=== PATIENT | female | born 1975 | race Caucasian/White ===

== ENCOUNTER 2020-03-15 12:54 | Emergency (ER) | payer OTHER ==
--- NOTE | 2020-03-15 14:41 | ER Document Report ---
ED General - General Chief Complaint: Cough Stated Complaint: COUGH,VOMITING,HEADACHE,DIARRHEA Primary Care Provider: MYA FABIAN MD [NO LOCAL MD] - Follow up as needed Notes: Patient is a 44-year-old white female who is a current everyday user of a vaping device who presents to the emergency department with a chief complaint of cough. She states yesterday evening she started having some nausea, vomiting and diarrhea. She states it was a couple episodes that were fleeting. This has since resolved. She states she awoke this morning and no longer had any of the symptoms. She states that she had breakfast without any problems. She has not had any formed stool yet today however. She denies any associated abdominal pain, urinary complaints. She states today however she developed a dry cough and has pain with deep inspiration in the chest. She admits associated with a mild headache. She denies any recent travel or sick contacts. Denies any fever. States the cough is nonproductive. She states there is no pain in the chest at rest. No lower extremity pain or swelling. No hemoptysis. No history of hormone replacement therapies, recent surgery, recent travel or recent immobilization. No history of DVT or PE. - Related Data Allergies/Adverse Reactions: Penicillins Allergy (Verified 03/15/20 14:11) Past Medical History - Social History Smoking Status: Former Smoker Frequency of alcohol use: Occasional Drug Abuse: None Family History: Reviewed & Not Pertinent Patient has homicidal ideation: No - Past Medical History Cardiac Medical History: Reports: Hx Hypertension Psychiatric Medical History: Reports: Hx Depression - anxiety Past Surgical History: Reports: Hx Section - x2 Review of Systems - Review of Systems Constitutional: denies: Fever EENT: denies: Nose discharge Cardiovascular: denies: Chest pain Respiratory: Cough, Hurts to breathe, Short of breath. denies: Sputum Gastrointestinal: Diarrhea, Nausea, Vomiting. denies: Abdominal pain Genitourinary: denies: Burning, Dysuria Female Genitourinary: denies: Irregular period Musculoskeletal: denies: Joint pain Skin: denies: Change in color Hematologic/Lymphatic: denies: Easy bleeding Neurological/Psychological: denies: Confusion Physical Exam - Vital signs Vitals: Temp Pulse Resp BP Pulse Ox 98.4 F 73 18 118/74 97 03/15/20 13:39 03/15/20 13:39 03/15/20 13:39 03/15/20 13:39 03/15/20 13:39 - General General appearance: Appears well, Alert In distress: None - HEENT Head: Normocephalic, Atraumatic Eyes: Normal Conjunctiva: Normal Extraocular movements intact: Yes Eyelashes: Normal Pupils: PERRL Ears: Normal External canal: Normal Tympanic membrane: Normal Nasal: Normal Mouth/Lips: Normal Mucous membranes: Normal Pharynx: Normal Neck: Normal, Supple - Respiratory Respiratory status: No respiratory distress Chest status: Nontender Breath sounds: Normal Chest palpation: Normal Notes: Pain elicited with deep inspiration on exam. No rubs auscultated. Chest nontender to palpation. - Cardiovascular Rhythm: Regular Heart sounds: Normal auscultation - Abdominal Inspection: Normal Distension: No distension Bowel sounds: Normal Tenderness: Nontender Organomegaly: No organomegaly - Extremities General upper extremity: Normal inspection, Nontender, Normal color, Normal ROM, Normal temperature General lower extremity: Normal inspection, Nontender, Normal color, Normal ROM, Normal temperature, Normal weight bearing. No: Andra's sign - Neurological Neuro grossly intact: Yes Cognition: Normal Orientation: AAOx4 - Psychological Associated symptoms: Normal affect, Normal mood - Skin Skin Temperature: Warm Skin Moisture: Dry Skin Color: Normal Course - Re-evaluation Re-evalutation: 03/15/20 17:11 Negative strep and flu. Chest x-ray negative for any acute process per radiologist. Suspect viral illness with cough. Will give Tessalon Perles. Patient requested a note for work today. Low risk for COVID-19. Advised to decrease vaping, increase clear fluids and rest. Counseled her to return here or any ER immediately with any new, persistent or worsening symptoms. Follow-up in 2 to 3 days for reevaluation. She verbalized understood and agreed. - Vital Signs Vital signs: Temp Pulse Resp BP Pulse Ox 98.4 F 73 18 118/74 97 03/15/20 14:16 03/15/20 13:39 03/15/20 13:39 03/15/20 13:39 03/15/20 13:39 Discharge - Discharge Clinical Impression: Viral illness, Cough Condition: Stable Disposition: HOME, SELF-CARE Instructions: Viral Syndrome ([facility]) Additional Instructions: Follow-up with your regular doctor in 2 to 3 days for reevaluation. Return here or any ER immediately with any new, persistent or worsening symptoms. Prescriptions: Benzonatate [Tessalon Perles 100 mg Capsule] 200 mg PO Q8HP PRN #40 capsule PRN Reason: Forms: Return to Work Referrals: MYA FABIAN MD [NO LOCAL MD] - Follow up as needed
--- NOTE | 2020-03-15 15:42 | RADIOLOGY REPORT (SQ) ---
EXAM DESCRIPTION: CHEST SINGLE VIEW IMAGES COMPLETED DATE/TIME: 03/15/2020 3:30 pm REASON FOR STUDY: cough COMPARISON: None. EXAM PARAMETERS: NUMBER OF VIEWS: One view. TECHNIQUE: Single frontal radiographic view of the chest acquired. RADIATION DOSE: NA LIMITATIONS: None. FINDINGS: LUNGS AND PLEURA: No opacities, masses or pneumothorax. No pleural effusion. MEDIASTINUM AND HILAR STRUCTURES: No masses. Contour normal. HEART AND VASCULAR STRUCTURES: Heart normal in size. Normal vasculature. BONES: No acute findings. HARDWARE: None in the chest. OTHER: No other significant finding. IMPRESSION: NO ACUTE RADIOGRAPHIC FINDING IN THE CHEST. TECHNICAL DOCUMENTATION: JOB ID: [id number] [employer]- All Rights Reserved Reading location - IP/workstation name: [email or web address]
[2020-03-15 16:23] LABS: A TYPE INFLUENZA AG NEGATIVE (NEGATIVE); B INFLUENZA AG NEGATIVE (NEGATIVE)
[2020-03-15 17:51] VITALS: BP 108/67
== END 2020-03-15 17:52 | disposition home or self-care (01) ==
LOC: ER 12:54
DX: B34.9 Viral infection, unspecified (principal); R05 Cough; R11.10 Vomiting, unspecified; R51 Headache; R19.7 Diarrhea, unspecified; I10 Essential (primary) hypertension; Z88.0 Allergy status to penicillin
CPT/HCPCS: 71045; 87070; 87804; 87880; 99284